=== PATIENT | male | born 1980 | race Caucasian/White ===

== ENCOUNTER 2020-04-21 03:55 | Emergency (ER) | payer SELFPAY ==
[~2020-04-21] VITALS: Ht 175.3 cm; Wt 75.0 kg
[2020-04-21 04:04] VITALS: BP 133/101; TEMP 98.3
[2020-04-21] MEDS ORDERED: PEN-VEE K500 MG PO (04:23)
[2020-04-21] MEDS ORDERED: NORCO 325 MG-51 TAB PO (04:23)
[2020-04-21 04:31] VITALS: PULSE 70
== END 2020-04-21 04:31 | disposition home or self-care (01) ==
LOC: COL.ER 03:55
DX: S02.5XXA Fracture of tooth (traumatic), initial encounter for closed fracture (principal); K08.89 Other specified disorders of teeth and supporting structures; F17.210 Nicotine dependence, cigarettes, uncomplicated; X58.XXXA Exposure to other specified factors, initial encounter

== ENCOUNTER 2020-12-10 05:45 | Emergency (ER) | payer SELFPAY ==
[~2020-12-10] VITALS: Ht 175.3 cm; Wt 75.0 kg
[~2020-12-10 05:45] MED LIST: NORCO 325 MG-51 TAB PO; PEN-VEE K500 MG PO
[2020-12-10 05:46] VITALS: BP 146/111; TEMP 97.9
[2020-12-10 06:39] VITALS: PULSE 85
== END 2020-12-10 06:39 | disposition home or self-care (01) ==
LOC: COL.ER 05:45
DX: F10.129 Alcohol abuse with intoxication, unspecified (principal); L75.0 Bromhidrosis; I10 Essential (primary) hypertension; F60.9 Personality disorder, unspecified; F17.200 Nicotine dependence, unspecified, uncomplicated

== ENCOUNTER 2021-04-26 17:11 | Emergency (ER) | payer SELFPAY ==
[~2021-04-26] VITALS: Ht 175.3 cm; Wt 75.0 kg
[2021-04-26] MEDS ORDERED: BACTRIM DS 8001 TAB PO (18:06)
[2021-04-26 19:10] VITALS: BP 131/86; PULSE 85; TEMP 98.7
== END 2021-04-26 18:12 | disposition home or self-care (01) ==
LOC: COL.ER 17:11
DX: L03.312 Cellulitis of back [any part except buttock and flank] (principal); L02.212 Cutaneous abscess of back [any part, except buttock and flank]; F17.210 Nicotine dependence, cigarettes, uncomplicated

== ENCOUNTER 2021-04-28 15:04 | Emergency (ER) | payer SELFPAY ==
[~2021-04-28] VITALS: Ht 175.3 cm; Wt 75.0 kg
[~2021-04-28 15:04] MED LIST changes: +BACTRIM DS 8001 TAB PO
[2021-04-28 15:22] VITALS: BP 122/65; PULSE 77; TEMP 97.4
== END 2021-04-28 16:09 | disposition home or self-care (01) ==
LOC: COL.ER 15:04
DX: L03.312 Cellulitis of back [any part except buttock and flank] (principal)